=== PATIENT | male | born 1965 | race Caucasian/White ===

== ENCOUNTER 2017-05-30 07:00 | Emergency (ER) | payer OTHER ==
[2017-05-30 07:12] VITALS: BP 131/83
--- NOTE | 2017-05-30 07:51 | ED Physician Documentation ---
PD HPI UPPER EXT INJURY - Stated complaint Stated Complaint: LT ARM PX - Chief complaint Chief Complaint: Ext Problem - History obtained from History obtained from: Patient - History of Present Illness Location: Left, Forearm Type of injury: Blunt / blow Where injury occurred: Home Timing - onset: How many days ago (2) Timing - duration: Days (2) Timing - details: Abrupt onset, Still present Improved by: Rest, Ice, Immobilization Worsened by: Moving, Palpating Associated symptoms: Swelling. No: Weakness, Numbness, Tingling Contributing factors: No: Anticoagulated Similar symptoms before: Has not had sx before Recently seen: Not recently seen - Additonal information Additional information: 51-year-old previously well male was installing some maldonado plank on his own home when the 12 foot long board attached with a nail at one end slipped and fell contusing his left forearm the board fell from about 8 feet up. He is able to use the forearm the wrist and the thumb he has pain over the distal radius and an area of swelling and abrasion. Review of Systems Constitutional: denies: Fever Respiratory: denies: Cough GI: denies: Vomiting Musculoskeletal: reports: Extremity pain, Extremity swelling. denies: Neck pain , Back pain Neurologic: denies: Generalized weakness, Focal weakness, Numbness PD PAST MEDICAL HISTORY - Past Medical History Past Medical History: Yes Cardiovascular: High cholesterol Respiratory: Sleep apnea Neuro: Headache/migraine Psych: Depression, ADD/ADHD, Obsessive compulsive disorder - Past Surgical History Past Surgical History: Yes Ortho: Carpal Tunnel surgery - Present Medications Home Medications: Ambulatory Orders Medication Instructions Recorded Confirmed Albuterol [Ventolin Hfa] 2 puffs INH Q4H PRN 12/27/13 05/30/17 Cetirizine HCl [Zyrtec] 10 mg PO HS 12/27/13 05/30/17 Sertraline [Zoloft] 100 mg PO HS 12/27/13 05/30/17 Simvastatin [Zocor] 10 mg PO HS 12/27/13 05/30/17 - Allergies Allergies/Adverse Reactions: Allergies Allergy/AdvReac Type Severity Reaction Status Date / Time No Known Drug Allergies Allergy Verified 12/27/13 17:13 - Social History Does the pt smoke?: No Smoking Status: Never smoker Does the pt drink ETOH?: Yes PD ED PE NORMAL - Vitals Vital signs reviewed: Yes (Hypertensive) - General General: No acute distress, Well developed/nourished - HEENT HEENT: Atraumatic, PERRL - Neck Neck: Supple, no meningeal sign - Respiratory Respiratory: No respiratory distress - Derm Derm: Normal color, Warm and dry, No rash - Extremities Extremities: Other (There is abrasion and swelling over the distal radius on the left forearm. Is able to flex and extend at the wrist is able flex and extend the thumb distal neurovascular components are intact. There is no injury to the left elbow.) - Neuro Neuro: Alert and oriented X 3, No motor deficit, No sensory deficit, Normal speech - Psych Psych: Normal mood, Normal affect Results - Vitals Vitals: Vital Signs - 24 hr 05/30/17 07:08 Temperature 35.9 C L Heart Rate 77 Respiratory 16 Rate Blood Pressure 131/83 H O2 Saturation 97 Oxygen O2 Source Room air PD MEDICAL DECISION MAKING - ED course Complexity details: reviewed results, re-evaluated patient, considered differential, d/w patient Departure - Departure Disposition: 01 Home, Self Care Clinical Impression: Contusion of forearm, left Qualifiers: Encounter type: initial encounter Qualified Code(s): S50.12XA - Contusion of left forearm, initial encounter Condition: Stable Instructions: ED Contusion Upper Ext Follow-Up: [facility] [Provider Group] Comments: Today in the Emergency Department your blood pressure was elevated. This can happen from the stress of the visit itself, from a current illness or circumstance or from uncontrolled hypertension. If you take blood pressure medications take your usual mediations, have your blood pressure re-checked in an appropriate setting and follow up any elevation with your primary care doctor.
--- NOTE | 2017-05-30 07:53 | XRAY Preliminary Report ---
Exam: XR Forearm LT IMPRESSION: Normal forearm radiography. [facility] SITE ID: [id number]
--- NOTE | 2017-05-30 07:56 | XRAY Report ---
EXAM: LEFT FOREARM RADIOGRAPHY EXAM DATE: 05/30/2017 07:22 AM. CLINICAL HISTORY: Distal radius contusion. COMPARISON: None. TECHNIQUE: 2 views. FINDINGS: Bones: Normal. No fractures or bone lesions. Joints: Normal. No effusions or subluxations in the visualized wrist or elbow joints. Soft Tissues: soft tissue swelling. IMPRESSION: Normal forearm radiography. [facility] Referring Provider Line: [phone] SITE ID: [id number]
== END 2017-05-30 07:56 | disposition home or self-care (01) ==
LOC: ED 07:00
DX: S50.12XA Contusion of left forearm, initial encounter (principal); W20.8XXA Other cause of strike by thrown, projected or falling object, initial encounter; Y92.019 Unspecified place in single-family (private) house as the place of occurrence of the external cause; E78.00 Pure hypercholesterolemia, unspecified; G47.30 Sleep apnea, unspecified; R03.0 Elevated blood-pressure reading, without diagnosis of hypertension
CPT/HCPCS: 99282; 99283

== ENCOUNTER 2023-02-11 10:03 | Outpatient (CLI) | payer OTHER ==
[2023-02-11 11:00] VITALS: BP 106/60
--- NOTE | 2023-02-11 11:00 | SLEEP CARE CONSULTATION ---
Information from patient questionnaire entered by Ted Chavez. I have reviewed and concur with the information entered by Ted Chavez. This document represents the service I personally performed and the decisions made by me, Elin Perez ARNP. History of Present Illness Service Date and Time: 02/11/2023 1003 Reason for Visit: New patient, Previously diagnosed sleep apnea, sleep apnea on CPAP therapy Chief Complaint: reports: Other (UPDATE SUPPLIES) Date of Onset: 20YRS Usual bedtime: 10PM Time it takes to fall asleep: 20-30MINS Snores at night: Yes Observed to quit breathing while asleep: Yes Sleeps alone due to snoring: No Number of times waking at night: 2 Reasons for waking at night: reports: Other (DRY MOUTH). denies: Choking, Gasping for air Toss, Turn, or Twitch while sleeping: Yes Recalls having dreams: Yes Usually gets out of bed at: 0530 Feels refreshed in the morning: Yes Morning headache: No Sleepy or fatigued during the day: Yes Ever fallen asleep while driving: Yes Takes day naps: Yes Dreams during day naps: No Prior sleep studies: Yes Year and Where: [facility] Additional HPI information: JONH BELTRÁN was previously diagnosed to have unknown, AHI unknown, obstructive sleep apnea-hypopnea syndrome and comes in today to establish care for CPAP therapy. - Parasomnia Symptoms Ever been unable to move upon waking from sleep: No Walks in sleep: No Talks in sleep: Yes Ever acted out dreams in sleep: No Ever felt weak in the knees when startled or emotional: No Bothered by creepy, crawly, restless sensations in legs: No Problems with memory or concentration: No CPAP Compliance Data - Data Reviewed with Patient Average duration of nightly device use: 7 hours 33 minutes Compliance rate %: 100 (90/90 days used) Current pressure setting (cmH2O): 10-13 Average residual AHI: 2.3 Central apnea: 0.9 Obstructive apnea: 0.6 Hypopnea: 0.7 Average large leak: 10.3 lpm Compliance data discussion: Patient has a Resmed Airsense 10, s/u 06/2016. He is purchasing his supplies online. He is using a chinstrap with his Salomon FX nasal pillows mask. Subjective Patient concerns: reports: dry mouth, nose, throat (does not used humidifier; only happens when mouth comes open). denies: aerophagia, mask discomfort, air blowing in eyes, mask leak noise, condensation in mask/hose, nasal congestion, epistaxis Observed to snore while using device: No Current pressure setting perceived as: comfortable On therapy, patient: reports: sleeping better, awakening more refreshed, being more awake and alert during the day, more rested overall. 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 Patient is and lives in [place]. Have you smoked in the past 12 months: No Alcohol use: Yes Alcohol amount and frequency: 1-2 DAY Caffeine use: Yes Caffeine amount and frequency: 2 DAILY Family History Family history of sleep disordered breathing: Yes Family Hx Sleep Apnea: Mother: Snoring, Father: Sleep apnea - Untreated, Sibling: Sleep apnea - Treated, Grandparent: Sleep apnea - Treated Allergies and Home Medications Known drug allergies: No Drug allergies reviewed: Yes Home medication list reviewed: Yes (see updated list in EMR) Allergy and home medication list: Allergies No Known Drug Allergies Allergy (Verified 02/10/23 14:07) Review of Systems Weight loss over past 5 years: 5 Cardiovascular: reports: high blood pressure Respiratory: reports: wheeze, sputum production Gastrointestinal: reports: heartburn Neurological: reports: headaches Psychiatric: reports: depression. denies: Attention Deficit Hyperactivity Ear/Nose/Throat: reports: nasal congestion, dry mouth/throat, wisdom teeth removed Musculoskeletal: reports: joint pain, back pain, muscle pain or cramping Physical Exam Vital signs obtained and entered by: TED Florence MA Blood Pressure: 106/60 (LEFT ARM) Cuff size: regular Heart Rate: 88 O2 Saturation: 98 Height: 5 ft 9 in Weight: 213 lb 9.6 oz Body Mass Index: 31.5 BMI Classification: Obese Neck circumference: 17.75 Heart: regular rate and rhythm Lungs: clear bilaterally Impression and Plan 1. Obstructive Sleep Apnea-Hypopnea Syndrome, unknown, with good treatment compliance and good apnea control. On CPAP therapy, the patient has better sleep quality and is more rested overall. We have requested a copy of his records from his last sleep provider. We hope to get a copy of his last sleep study. He has been buying his own supplies and would like to get set up with a DME supplier. I will have my nutrition coordinator inform of DME options. A DWO prescription will then be made once I have a copy of sleep study. Patient advised to contact this office if further supply problems. Patient would also like to get a travel CPAP. I explained that they are not normally covered by insurance and he would still like to look into it. I will give him a prescription for the travel CPAP at checkout today. As long as we get a copy of his sleep study, he may follow up next year. 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 Patient's apnea severity and rationale for treatment to reduce apnea, improve sleep quality and reduce cardiovascular and cerebrovascular events was reviewed. I also reviewed the benefit of consistent device use of CPAP for hypertension, diabetes, gastric reflux, depression and attention deficit. 2. Obesity, unspecified. Currently patients BMI is 31.5. Obesity increases the risk of apnea, CPAP pressure requirements and overall health risks especially cardiovascular and diabetes. Thus patient is advised to lose weight. * Continue auto CPAP pressure at 10-13 cmH2O * Obtain copy of sleep study * Transfer DME * Update supplies * Prescription for portable CPAP device * Notify me if snoring with mask or feeling that the pressure is too much or too little * Attempt to lose weight * Call this office if any problems using CPAP * Return for follow up in 1 year, or sooner if concerns arise Counseling Topics: Weight loss health impact Visit Type: In Office Time Spent with Patient (minutes): 33 Provider Statement: I spent 100% of the Face to Face Visit with the patient with greater than 50% spent counseling the patient and coordination of care.
== END 2023-02-11 10:04 | disposition home or self-care (01) ==
LOC: SC 10:03
PROVIDERS: ATTEND Nurse Practitioner Family
DX: G47.33 Obstructive sleep apnea (adult) (pediatric) (principal); E66.9 Obesity, unspecified; Z68.31 Body mass index [BMI] 31.0-31.9, adult
CPT/HCPCS: 99203; 99212

== ENCOUNTER 2024-02-03 11:14 | Outpatient (CLI) | payer OTHER ==
--- NOTE | 2024-02-03 11:53 | Sleep Patient Instructions ---
Sleep Center Visit Summary - Patient Visit Information Reason for Visit: Annual follow-up - Patient Instructions Additional Instructions: You will continue with CPAP therapy with pressure set at 10-13 cmH2O. A supply prescription will be made to get you connected with a CPAP supplier to get your supplies. A prescription for a travel machine was also give to you as requested. Please follow up with the sleep care office in 1 year. - Clinic Information Contact: [facility] [address] [place] [address] [email or web address] T: [phone]
--- NOTE | 2024-02-03 11:59 | SLEEP CARE CONSULTATION ---
Information from patient questionnaire entered by Kera Chavez. I have reviewed and concur with the information entered by Kera Chavez. This document represents the service I personally performed and the decisions made by , Elin Perez ARNP. History of Present Illness Service Date and Time: 02/03/2024 1114 Previous diagnosis: Moderate, Obstructive Sleep Apnea-Hypopnea Syndrome AHI: 18.3 (02/17/2017) Reason for follow up: annual (LAST SEEN 01/2023) Equipment type: CPAP (ResMed Airsense 10) Equipment obtained from: Other ([employer]) Mask style: Nasal pillows (Salomon Fx, medium cushion) Backup mask available: Yes Last cushion change: 1 month Prior sleep studies: Yes Year and Where: [facility], 02/17/2017 HPI additional information: JONH BELTRÁN was diagnosed to have moderate, AHI 18.3, obstructive sleep apnea- hypopnea syndrome and returned today for CPAP therapy annual follow-up. Sleep Study - Results Prior sleep studies: Yes Year and Where: [facility] CPAP Compliance Data - Data Reviewed with Patient Average duration of nightly device use: 7 hours 23 minutes Compliance rate %: 96 (07/02/23-12/28/2023; 179/180 days used) Current pressure setting (cmH2O): 10-13 Average residual AHI: 1.6 Central apnea: 0.4 Obstructive apnea: 0.5 Average large leak: 15.4 L/min Subjective Patient concerns: reports: dry mouth, nose, throat (opens mouth, uses chinstrap). denies: aerophagia, mask discomfort, air blowing in eyes, mask leak noise, condensation in mask/hose, nasal congestion, epistaxis Observed to snore while using device: No Current pressure setting perceived as: comfortable On therapy, patient: reports: sleeping better, awakening more refreshed, being more awake and alert during the day, more rested overall. denies: drowsiness while driving Initial Hassell Sleepiness Scale score: 14 (02/11/23) Current Hassell Sleepiness Scale score: 8 Allergies and Home Medications Known drug allergies: No Drug allergies reviewed: Yes Home medication list reviewed: Yes (Crestor) Allergy and home medication list: Allergies No Known Drug Allergies Allergy (Verified 02/01/24 15:06) Home Medications Medication Instructions Recorded Confirmed Last Taken Type Albuterol [Ventolin Hfa] 2 puffs INH Q4H PRN 12/27/13 02/03/24 Unknown History Cetirizine HCl [Zyrtec] 10 mg PO HS 12/27/13 02/03/24 12/26/13 History Sertraline [Zoloft] 100 mg PO HS 12/27/13 02/03/24 12/26/13 History Dulaglutide [Trulicity] See Rx Instructions .ROUTE .COMPLEX 02/11/23 02/03/24 Unknown History Lisinopril [Zestril] See Rx Instructions .ROUTE .COMPLEX 02/11/23 02/03/24 Unknown History metFORMIN [Glucophage] See Rx Instructions .ROUTE .COMPLEX 02/11/23 02/03/24 Unknown History Crestor See Rx Instructions .ROUTE .COMPLEX 02/03/24 02/03/24 Unknown History Review of Systems Review of systems same as previous: Yes (no changes) Physical Exam Vital signs obtained and entered by: ELIN KOCH-Naman Blood Pressure: 132/83 Cuff size: regular (right arm) Heart Rate: 84 O2 Saturation: 98 Height: 5 ft 9 in Weight: 218 lb Weight change since last visit: 5 lb gain Body Mass Index: 32.1 BMI Classification: Obese Impression and Plan 1. Obstructive Sleep Apnea-Hypopnea Syndrome, moderate, with good treatment compliance and good apnea control. On CPAP therapy, the patient has better sleep quality and is more rested overall. Patient requests another prescription for a travel CPAP because he did not get it filled last year. He knows he will have to pay for the travel CPAP because insurance does not typically cover costs of travel CPAPs. He also has been getting his supplies through [employer]. I discussed with him setting him up with a DME supplier and he agreed. He may be eligible for a new machine but declines getting set up for one at this time. We will follow-up with him next year. Patient has significant improvement of their sleep apnea and is satisfied with current CPAP therapy. Patient denies problems with oral dryness, nasal congestion, epistaxis, skin irritation or aerophagia. Patient's apnea severity and rationale for treatment to reduce apnea, improve sleep quality and reduce cardiovascular and cerebrovascular events was reviewed. I also reviewed the benefit of consistent device use of CPAP for hypertension, diabetes, gastric reflux, depression and attention deficit. 2. Obesity, unspecified. Currently patients BMI is 32.1. Obesity increases the risk of apnea, CPAP pressure requirements and overall health risks especially cardiovascular and diabetes. Thus patient is advised to lose weight. * Continue auto CPAP pressure at 10-13 cmH2O * Update supply prescription * Notify me if snoring with mask or feeling that the pressure is too much or too little * Attempt to lose weight * Call this office if any problems using CPAP * Return for follow up in 12 months, or sooner if concerns arise Counseling Topics: Spare mask, Weight loss health impact Prescriptions: Device supplies (with DME transfer) Follow up with Sleep Care in: 1 year Visit Type: In Office Time Spent with Patient (minutes): 28 Provider Statement: I spent 100% of the Face to Face Visit with the patient with greater than 50% spent counseling the patient and coordination of care.
[2024-02-03 12:06] VITALS: BP 132/83; O2SAT 98
== END 2024-02-03 11:15 | disposition home or self-care (01) ==
LOC: SC 11:14
PROVIDERS: ATTEND Nurse Practitioner Family
DX: G47.33 Obstructive sleep apnea (adult) (pediatric) (principal)
CPT/HCPCS: 99212; 99213